=== PATIENT | female | born 1990 | race Caucasian/White ===

== ENCOUNTER 2021-07-01 05:57 | Inpatient (IN) | payer MEDICAID ==
[~2021-07-01] VITALS: Ht 152.4 cm; Wt 89.8 kg
[2021-07-01] MEDS ORDERED: PRETAB PO (06:44)
[2021-07-01 06:45] VITALS: BP 135/91
[2021-07-01] MEDS ORDERED: LACTATED RINGERS 500 ML IV SCH (07:25)
[2021-07-01 07:55] LABS: BASOPHILS % (AUTO) 0.6 % (0.0-2.0); EOSINOPHILS # (AUTO) 0.1 K/uL (0-0.4); HEMATOCRIT 38.7 % (36-48); HEMOGLOBIN 13.1 g/dL (12.0-16.0); LYMPHOCYTES # (AUTO) 1.7 K/uL (2.5-16.5); LYMPHOCYTES % (AUTO) 21.6 % (20.5-51.1); MEAN CORPUSCULAR HEMOGLOBIN 30 pg (27-31); MEAN CORPUSCULAR HGB CONC 34 g/dL (33-37); MEAN CORPUSCULAR VOLUME 88.7 fL (80-94); MONOCYTES # (AUTO) 0.4 K/uL (0.8-1.0); MONOCYTES % (AUTO) 5.5 % (1.7-9.3); NEUTROPHILS # (AUTO) 5.6 K/uL (1.8-7.7); NEUTROPHILS % (AUTO) 71.3 % (42.2-75.2); PLATELET COUNT (AUTO) 172 K/uL (140-450); RED BLOOD CELL COUNT(AUTO) 4.36 MIL/uL (4.20-5.40); RED CELL DISTRIBUTION WIDTH 15.1 % (11.6-13.7); WHITE BLOOD COUNT (AUTO) 7.8 K/uL (4.8-10.8)
[2021-07-01 07:58] LABS: APPEARANCE,URINE SLIGHTLY HAZY (CLEAR); COLOR,URINE YELLOW (YELLOW)
[2021-07-01 07:59] LABS: LEUKOCYTE ESTERASE ,URINE 3+ (NEGATIVE); NITRITE, URINE NEGATIVE (NEGATIVE)
[2021-07-01 08:00] LABS: PH,URINE 6.5 (5.0-9.0)
[2021-07-01 08:01] LABS: BILIRUBIN,URINE NEGATIVE (NEGATIVE); BLOOD, URINE 2+ (NEGATIVE)
[2021-07-01 08:02] LABS: UGLUCOSE NEGATIVE (NEGATIVE)
[2021-07-01 08:12] LABS: WBC,URINE 0-5 /HPF (0-5)
[2021-07-01 08:13] LABS: PROTHROMBIN TIME 9.5 secs (10.8-13.4)
[2021-07-01 08:15] LABS: ALBUMIN 2.5 g/dL (3.4-5.0); ANION GAP 12.6 (8-16); CARBON DIOXIDE 24.2 mmol/L (21-32); CREATININE 0.6 mg/dL (0.6-1.3); POTASSIUM 3.8 mmol/L (3.5-5.1); TOTAL BILIRUBIN 0.4 mg/dL (0.0-1.0)
[2021-07-01 08:15] LABS: OTHER CASTS, URINE None Seen /LPF (None Seen); YEAST,URINE Few /HPF (None Seen)
--- NOTE | 2021-07-01 08:24 | NUR ---
PATIENT HAS BEEN SCREENED AND CATEGORIZED LOW NUTRITION RISK. PATIENT WILL BE SEEN WITHIN 7 DAYS OF ADMISSION. 07/07/[address]
[2021-07-01] MEDS: LACTATED RINGERS 1,000 ML IV SCH ×2 (08:47→11:09)
[2021-07-01 09:24] VITALS: BP 147/85
[2021-07-01] MEDS ORDERED: MORPHINE PRES FREE 10 MG/10 ML AMP IV ONE (12:14)
[2021-07-01] MEDS ORDERED: METHYLERGONOVINE 0.2 MG/ML AMP IM PRN (12:20)
[2021-07-01] MEDS ORDERED: oxyCODONE/APAP 5/325 MG 1 TAB TAB PO PRN (12:20)
[2021-07-01] MEDS ORDERED: OXYTOCIN 20 UNITS in LACTATED RINGERS 1,000 ML IV SCH (12:20)
[2021-07-01] MEDS ORDERED: IBUPROFEN 800 MG TAB PO PRN (12:20)
[2021-07-01] MEDS ORDERED: SIMETHICONE 80 MG TAB.CHEW PO PRN (12:20)
[2021-07-01] MEDS ORDERED: KETOROLAC 30 MG/ML VIAL IVP PRN (12:20)
[2021-07-01] MEDS ORDERED: TEMAZEPAM 15 MG CAP PO PRN (12:20)
[2021-07-01] MEDS ORDERED: MEASLES, MUMPS, AND RUBELLA 1 VIAL SQVAC PRN ×2 (12:20→12:30)
[2021-07-01] MEDS ORDERED: OXYTOCIN 20 UNITS/LR PREMIX 1,000 ML IV ONE (12:48)
[2021-07-01] MEDS ORDERED: METOCLOPRAMIDE 10 MG/2 ML INJ VIAL IVP PRN (13:20)
[2021-07-01] MEDS ORDERED: diphenhydrAMINE 50 MG/ML VIAL IVP PRN (13:25)
[2021-07-01] MEDS ORDERED: NALOXONE 0.4 MG/ML VIAL IVP PRN ×3 (13:25)
[2021-07-01] MEDS ORDERED: ONDANSETRON 4 MG/2 ML VIAL IVP PRN (13:25)
[2021-07-01] MEDS: DOCUSATE SOD/SENNA 50/8.6 MG 1 TAB PO SCH (21:00)
[2021-07-02] MEDS: KETOROLAC 30 MG/ML VIAL IM/IVP SCH ×2 (00:10→06:00)
[2021-07-02] MEDS ORDERED: OXYTOCIN 20 UNITS/LR PREMIX 1,000 ML IV ONE (01:20)
[2021-07-02 06:32] LABS: BASOPHILS % (AUTO) 0.2 % (0.0-2.0); EOSINOPHILS # (AUTO) 0.1 K/uL (0-0.4); EOSINOPHILS % (AUTO) 0.8 % (0.0-4.0); HEMATOCRIT 32.7 % (36-48); HEMOGLOBIN 11.2 g/dL (12.0-16.0); LYMPHOCYTES # (AUTO) 1.4 K/uL (2.5-16.5); LYMPHOCYTES % (AUTO) 15.5 % (20.5-51.1); MEAN CORPUSCULAR HEMOGLOBIN 31 pg (27-31); MEAN CORPUSCULAR HGB CONC 34 g/dL (33-37); MEAN CORPUSCULAR VOLUME 88.5 fL (80-94); MONOCYTES # (AUTO) 0.7 K/uL (0.8-1.0); MONOCYTES % (AUTO) 7.6 % (1.7-9.3); NEUTROPHILS # (AUTO) 6.8 K/uL (1.8-7.7); NEUTROPHILS % (AUTO) 75.9 % (42.2-75.2); PLATELET COUNT (AUTO) 150 K/uL (140-450); RED BLOOD CELL COUNT(AUTO) 3.69 MIL/uL (4.20-5.40); RED CELL DISTRIBUTION WIDTH 15.1 % (11.6-13.7)
[2021-07-02] MEDS: LABETALOL 100 MG TAB PO SCH (13:08)
[2021-07-02] MEDS ORDERED: CAMERA MC ONE (19:14)
[2021-07-02] MEDS: DOCUSATE SOD/SENNA 50/8.6 MG 1 TAB PO SCH (20:17)
[2021-07-03] MEDS ORDERED: LEVOTHYROXINE 0.075 MG TAB PO SCH (06:30)
[2021-07-03] MEDS: LABETALOL 100 MG TAB PO SCH (09:36)
== END 2021-07-03 15:30 | disposition home or self-care (01) | DRG 540 ==
LOC: MLD 05:57 → OBSVTOIN 07:24 → MFCC 14:28
PROVIDERS: ADMIT Obstetrics & Gynecology; ATTEND Obstetrics & Gynecology
PROC: 10D00Z1 Extraction of Products of Conception, Low, Open Approach (ICD-10-PCS; principal; 2021-07-01 12:00)
DX: O34.211 Maternal care for low transverse scar from previous cesarean delivery (principal); Z20.822 Contact with and (suspected) exposure to COVID-19; Z37.0 Single live birth; Z3A.38 38 weeks gestation of pregnancy
CPT/HCPCS: 36415; 80053; 81001; 85025; 85610; 85730; 86592; 86886; 86900; 86901; 87086; 90715; J0690; J1885; J2270; J2590; J7060; J7120